=== PATIENT | male | born 2000 | race Caucasian/White ===

== ENCOUNTER 2022-04-07 21:47 | Emergency (ER) | payer MEDICAID, MEDICARE ==
[~2022-04-07] VITALS: Ht 180.3 cm; Wt 95.0 kg
[~2022-04-07 21:47] MED LIST: [UNRECOGNIZED DRUG - REMARK]
[2022-04-07 22:11] VITALS: BP 144/87
[2022-04-08] MEDS ORDERED: IBUP-2029 PO (05:18)
== END 2022-04-08 06:01 | disposition home or self-care (01) ==
LOC: ER 21:47
DX: M54.50 Low back pain, unspecified (principal); S50.812A Abrasion of left forearm, initial encounter; J45.909 Unspecified asthma, uncomplicated; F41.9 Anxiety disorder, unspecified; V43.52XA Car driver injured in collision with other type car in traffic accident, initial encounter; Y93.89 Activity, other specified; Y92.410 Unspecified street and highway as the place of occurrence of the external cause
CPT/HCPCS: 99282